=== PATIENT | female | born 1985 | race Hispanic/Latino ===

== ENCOUNTER 2020-05-31 14:25 | Emergency (ER) | payer BC, SELFPAY ==
--- NOTE | 2020-05-31 15:21 | PC.NURSE ---
arrived and stated she has a bed at [facility] and upset [facility] did not take her to [facility]. Opts to take pt. to [facility] per POV. Pt. in no acute distress. She states it is ridiculous that she did not go directly to ED treatment room. Dept. volume explained to pt. upon her arrival.
[2020-05-31 15:55] VITALS: BP 126/79; PULSE 110; RESP 18; TEMP 36.3; O2SAT 97
--- NOTE | 2020-05-31 15:59 | PC.NURSE ---
Pt was called to triage at 1516 but did not answer. When called this time pt states she must have dozed off
[2020-05-31 17:19] VITALS: BP 130/75; PULSE 96; RESP 14; O2SAT 99
--- NOTE | 2020-05-31 18:27 | PC.NURSE ---
urine from CC sent to lab but pt. having vaginal bleeding; unable to cath pt. at triage
--- NOTE | 2020-05-31 18:42 | PC.NURSE ---
called pt at 1836 with no answer and again at 184 with no answer
== END 2020-05-31 18:46 | disposition left against medical advice (07) ==
LOC: ANHED 16:36
PROVIDERS: Emergency Provider Emergency Medicine; PCP Obstetrics & Gynecology
DX: N93.9 Abnormal uterine and vaginal bleeding, unspecified (principal)
CPT/HCPCS: 81025; 99199

== ENCOUNTER 2022-12-07 15:30 | Outpatient (RCR) | payer SELFPAY | END 2023-03-07 23:59 | disposition home or self-care (01) | LOC: ANHLAB 15:30 | PROVIDERS: PCP Obstetrics & Gynecology; Visit Provider Obstetrics & Gynecology | DX: O02.1 Missed abortion (principal); Z3A.00 Weeks of gestation of pregnancy not specified | CPT/HCPCS: 36415; 85461; 86850; 86900; 86901 ==

== ENCOUNTER 2023-03-22 08:54 | Emergency (ER) | payer BC, SELFPAY ==
[2023-03-22 08:58] VITALS: BP 119/88; PULSE 99; RESP 14; TEMP 36.1; O2SAT 100
--- NOTE | 2023-03-22 09:17 | ED.SKABFB ---
HPI - Skin/Abscess/Foreign Bdy General Chief complaint: Skin/Abscess/Foreign Body Stated complaint: facial rash Time Seen by Provider: 03/22/23 08:58 History of Present Illness HPI narrative: 38 y/o female presents with a rash to left forehead that extends into scalp for 5 days. patient states it started out as itchy but now is burning. patient denies any new exposures, fever or vision issues. no other complaints. Onset (ago): day(s) (5) Associated symptoms: denies other symptoms Review of Systems Review of Systems: All systems reviewed & are unremarkable except as noted in HPI and below Integumentary/Breasts: Skin/Breast: Reports pruritus, Reports erythema and Reports rash Exam Const: General: healthy appearing and no acute distress HENMT: Head: normal to inspection Ears: external ears normal Face/Nose/Sinus: Normal external nose present Mouth: Yes Normal oral and palatal mucosa present Eyes: Conjunctivae: conjunctivae normal Pupils: Equal, round and reactive pupils present EOM: EOMs intact bilaterally Other: no vesicles visualized to conjunctiva or inner lid, patient wearing glasses at this time Neck: Neck: normal visual inspection Chest: Chest palpation & inspection: normal inspection of the chest Resp: Effort & Inspection: normal respiratory effort Cardio: Rate: regular rate Back/Spine/Pelvis: Back: no CVA tenderness Skin: Other: red linear vesicular rash to left forehead that extends to left eyebrow and to scalp. rash does not extend to eye. no drainage from wound Neuro: General: patient oriented x3 Extrem: General: normal to inspection Psych: Mental Status: mental status grossly normal Course Course Emergency Course: will start on valacyclovir for shingles. rash does not extend into eye and patient denies vision issues. patient educated on the importance to f/u with eye doctor if she develop vision issues. patient instructed not to use contacts for 2 weeks Vital Signs Vital signs: Vital Signs Temperature 36.1 C L 03/22/23 08:58 Pulse Rate 99 03/22/23 08:58 Respiratory Rate 14 03/22/23 08:58 Blood Pressure 119/88 03/22/23 08:58 Pulse Oximetry 100 03/22/23 08:58 Oxygen Delivery Room Air 03/22/23 08:58 Temperature 36.1 C L 03/22/23 08:58 Pulse Rate 99 03/22/23 08:58 Respiratory Rate 14 03/22/23 08:58 Blood Pressure 119/88 03/22/23 08:58 Pulse Oximetry 100 03/22/23 08:58 Oxygen Delivery Room Air 03/22/23 08:58 MDM - Skin/Abscess/Foreign Bdy MDM Narrative Medical decision making narrative: will start on valcyclovir r/t new appearing vesicles r/t being close to patient's left eye Discharge Plan Discharge Clinical Impression: Herpes zoster dermatitis Patient Disposition: Home, Self-Care Condition: Stable Instructions: Antibiotic Form, Shingles (ED) Additional Instructions: TAKE MEDICATIONS PRESCRIBED RETURN FOR WORSENING SYMPTOMS IF YOU DEVELOP VISION ISSUES, PAIN TO LEFT EYE, OR ANY OTHER CONCERNING SYMPTOMS, GO TO THE NEAREST EYE DOCTOR IMMEDIATELY Prescriptions: New valacyclovir 1 gram tablet 1,000 mg PO Q8H 7 Days Qty: 21 0RF Follow-up/Referrals: Nirmal,KAYKAY Callahan [Primary Care Provider] - 3 Days Time of Disposition: 09:27
== END 2023-03-22 09:39 | disposition home or self-care (01) ==
PROVIDERS: Emergency Provider Nurse Practitioner Family; PCP Physician Assistant
DX: B02.9 Zoster without complications (principal)
CPT/HCPCS: 99283

== ENCOUNTER 2023-12-01 07:56 | Inpatient (IN) | payer BC, SELFPAY ==
[2023-12-01] VITALS (140 sets, daily range): BP systolic 61–137; BP diastolic 39–111; PULSE 76–246; RESP 16; TEMP 36.4–36.9; O2SAT 96–100; BMI 38.6
--- NOTE | 2023-12-01 08:40 | LDADM ---
This patient, Alexa Latham, was admitted to Labor/Delivery/Recovery 105 on 12/01/23 at 07:56. Plans for labor, pain management and were discussed with patient. Patient/family oriented to hospital policies and general routines including ID bracelet, bed and alarms, visiting hours, pain management, procedures, bathroom and other care routines, personal items, smoking policy, room service/diet and guest tray routines, security routines, and visiting hours. Patient/Family are encouraged to report perceived risks to care and to ask questions if they do not understand what they are told or what they should do. See [facility]BIX for further documentation.
[2023-12-01] MEDS: miSOPROStol 25 MCG TABLET 50 MCG BUCCAL (08:51)
[2023-12-01 08:52] LABS: Basophils Percent Auto 0.4 % (0.2-1.2); Eosinophils Absolute Auto 0.2 K/mm3 (0-0.3); Eosinophils Percent Auto 1.7 % (0-4.4); Hematocrit 33.2 % (37.0-47.0); Hemoglobin 11.4 g/dL (12.0-15.0); Immature Granulocyte Absolute 0.03 K/mm3 (0.00-0.031); Immature Granulocyte Percent A 0.3 % (0-0.5); Lymphocytes Absolute Auto 2.41 K/mm3 (0.9-3.2); Lymphocytes Percent Auto 26.6 % (18.3-44.2); Mean Corpuscular HGB Conc 34.3 g/dl (32-36); Mean Corpuscular Hemoglobin 31.1 pg (26-34); Mean Corpuscular Volume 90.5 fl (80-100); Mean Platelet Volume 10.4 fl (7.4-10.4); Monocytes Absolute Auto 0.8 K/mm3 (0.1-0.6); Monocytes Percent Auto 8.7 % (2.6-8.5); Neutrophils Absolute Auto 5.6 K/mm3 (1.3-6.7); Neutrophils Percent Auto 62.3 % (45.5-73.1); Platelet Count Result 349 k/mm3 (150-375); Red Blood Count 3.67 M/mm3 (4.2-5.4); Red Cell Distribution Width 13.5 % (11.5-14.5); White Blood Count 9.1 K/mm3 (4.5-10.0)
[2023-12-01 09:36] LABS: HIV 1/2 Ab P24 Ag Result Negative (Negative)
[2023-12-01] MEDS: LACTATED RINGERS 1,000 ML 125 ML IV CONT ×2 (10:00→11:53)
[2023-12-01] MEDS: SODIUM CHLORIDE 0.9% IV 300 ML 600 ML I-UTERINE (11:15)
[2023-12-01 11:42] LABS: Rapid Plasma Reagin Non-Reactive (NonReactive)
[2023-12-01] MEDS: OXYTOCIN 30 UNITS/NS 500 ML 30 UNITS/500 ML BAG 999 UNITS IV CONT (17:23)
--- NOTE | 2023-12-01 17:30 | WPDOBADMIT ---
Obstetrics - Admit Note Admission Note: record reviewed. No pertinent additions to the history and/or any subsequent changes in the physical findings that are not consistent with the expected course of the were found. Patient presents for SROM at 0715 this AM of clear fluid. No strong contractions or vaginal bleeding. Good movement. Cytotec per protocol, SVE /-3 per RN. Additions to the history and/or subsequent changes in the physical findings follow. None.
--- NOTE | 2023-12-01 17:32 | PM.OBPRVD ---
OB - Vaginal Delivery Note Procedure Delivery date: 12/01/23 Events: Other (AMA) Induction method: Per Misoprostol Protocol Delivery augmentation: Rupture of Membranes (forebag ruptured just prior to delivery) Delivery monitor: External FHT and Internal Uterine Route of delivery: Episiotomy description: None Laceration Description: None Specimen: No Quantitative Blood Loss (ml): 100 Anesthesia type: Epidural Disposition: Floor Complications: No immediate complications Narrative: See H&P and notes for details on patient's admission and labor. She progressed to complete cervical dilation and at the appropriate time began pushing. With adequate expulsive efforts by the mother, the baby's head was delivered without difficulty. Nuchal cord was not present. The baby's right shoulder was anterior and delivered under the pubic symphysis without difficulty. The posterior shoulder and the rest of the baby delivered without difficulty. The umbilical cord was doubly clamped and cut after 60 seconds of delayed cord clamping. Care of the was then assumed by the nursing staff. Baby Date of : 12/01/23 Time of : 17:18 Gestational Age by Date: 38 Infant gender: Male presentation: vertex position: Left Occiput Anterior Placenta delivery description: Expressed Cord Vessel Description: 3 Vessels and Delayed Cord Clamping
[2023-12-01] MEDS: OXYTOCIN 30 UNITS/NS 500 ML 30 UNITS/500 ML BAG 125 UNITS IV CONT (17:57)
[2023-12-01] MEDS: BENZOCAINE 20% AER SPR (*SP) 56 GM CAN 1 SPRAY TOPICAL (19:02)
[2023-12-01] MEDS: WITCH HAZEL 40 PADS 1 PAD TOPICAL (19:02)
--- NOTE | 2023-12-01 20:16 | OBPPTRN ---
12/01/2023 at 1937 Patient transferred to post room #288. Support person and patient oriented to unit, room, information board, rooming in, admission packet and security measures. Patient and her significant other verbalizes understanding.
[2023-12-02 00:50] VITALS: BP 91/55; PULSE 101; RESP 16; TEMP 36.4; O2SAT 97
[2023-12-02 04:35] VITALS: BP 96/62; PULSE 93; RESP 16; TEMP 36.4
[2023-12-02 05:10] LABS: Hematocrit 33.5 % (37.0-47.0); Hemoglobin 11.1 g/dL (12.0-15.0)
[2023-12-02] MEDS: ACETAMINOPHEN 325 MG TABLET 650 MG PO (05:59)
--- NOTE | 2023-12-02 07:45 | WPDANLDPN2 ---
Anes-Prog Note L&D Date/Time: 12/02/23 07:45 Comfortable throughout: labor and delivery Neuraxial method: epidural Epidural/Spinal procedure site: clean & non-tender Neuro status: Neuro function grossly intact. Cardiovascular status: normal Respiratory status: normal Airway patency: baseline Mental status: baseline Post-Op hydration status: normal Vital Signs: Last Vital Signs Temp 36.4 C L 12/02/23 04:35 Pulse 93 12/02/23 04:35 Resp 16 12/02/23 04:35 BP 96/62 L 12/02/23 04:35 Pulse Ox 97 12/02/23 00:50 O2 Del Method Room Air 12/01/23 08:39 Pain score (VAS): 0/10 I/O: Intake & Output 12/01/23 12/01/23 12/02/23 15:59 23:59 07:59 Intake Total 1000 Output Total 100 Balance 1000 -100 Post-procedural complaints: none Patient feedback: Patient satisfied with anesthetic care.
[2023-12-02 07:50] VITALS: BP 91/55; PULSE 82; RESP 16; TEMP 37.1; O2SAT 97
[2023-12-02] MEDS: MULTIVIT/MIN/PREN/FOL AC/IRON TABLET 1 TAB PO (09:09)
[2023-12-02] MEDS: IBUPROFEN 600 MG TABLET PO (09:09)
--- NOTE | 2023-12-02 11:55 | PC.NURSE ---
medical oncologist called this RN to assist with feeding. was circumcised and is sleepy. After a diaper change and unwrapping , infant was placed on the left breast in football position and is nursing well.
[2023-12-02 12:04] VITALS: BP 101/62; PULSE 85; RESP 16; TEMP 36.3; O2SAT 99
--- NOTE | 2023-12-02 12:58 | PM.OBPNVD ---
OB - PN: Subj Subjective Date/time seen: 12/02/23 12:58 Interval history: PPD#1 Doing well, pain controlled Bleeding minimal , latching well Ready for discharge home OB - PN: Obj Data Labs 12/02/23 05:00 Labs: Laboratory Results - last 24 hr 12/02/23 05:00 Hgb 11.1 L Hct 33.5 L OB - PN A/P Assessment and Plan (1) (spontaneous vaginal delivery): Code(s): O80 - Encounter for full-term uncomplicated delivery Status: Acute Plan day: 1 Plan: routine care and discharge home Time Spent With Patient Time: Total time spent is greater than 50% in coordination of care (as documented) at patient's floor/unit and/or counseling patient: Review of Systems Review of Systems: All systems reviewed & are unremarkable except as noted in HPI and below Exam Const: General: comfortable and no acute distress Orientation/consciousness: patient oriented x3 Resp: Effort & Inspection: normal respiratory effort
--- NOTE | 2023-12-02 13:02 | PM.OBDSVD ---
DS: Admitting Diagnosis Discharge Date 12/02/23 Admitting Diagnosis SROM DS: Discharge Diagnosis Discharge Diagnosis (1) (spontaneous vaginal delivery): Code(s): O80 - Encounter for full-term uncomplicated delivery Status: Acute OB - DS: Summary OB Procedures : None OB Procedures Intrapartum: Spontaneous Vag Delivery OB Procedures: : None Peripartum Data Laceration Description: None Episiotomy description: None Time Spent with Patient Time attestation: Total time spent providing and/or coordinating discharge services: DS: Data Data Completed and Pending Labs on day of discharge: Labs from last 24 hours 12/02/23 05:00 Hgb 11.1 L Hct 33.5 L Discharge Plan Discharge Attending physician on discharge: Steven Diallo Discharging Clinician: Steven Diallo Patient Disposition: Home, Self-Care Activity: may shower and pelvic rest Diet: as tolerated Patient Instructions: Antibiotic Form Stand Alone Forms: General Discharge Information Follow-up/Referrals: Steven Diallo MD [Physician] - 4 Weeks Discharge Medications: New docusate sodium 100 mg Capsule 100 mg PO BID PRN (Reason: Constipation) Qty: 60 0RF ibuprofen 600 mg Tablet 600 mg PO Q6H PRN (Reason: Cramping) Qty: 30 0RF Continued #2 Tablet 1 tablet DAILY Discontinued Adult Low Dose Aspirin 81 mg Tablet 81 mg PO DAILY Date of admission: 12/01/23 07:56 Primary Care Provider: IoanaSindy Admitting Provider: Steven Diallo Attending physician on admission: Steven Diallo Condition: Stable
[2023-12-02] MEDS: TETANUS,DIPHTHERIA,AC PERTUSSIS ADULT (0.5 ML) BOOSTRIX IM (14:21)
[2023-12-04 11:35] VITALS: BP 113/73; PULSE 88; RESP 18; TEMP 37.1; O2SAT 100
== END 2023-12-02 20:45 | disposition home or self-care (01) | DRG 560 ==
LOC: ANHLDR 08:19 → ANHOB2 19:40
PROVIDERS: Admitting Provider Obstetrics & Gynecology; PCP Physician Assistant; Visit Provider Obstetrics & Gynecology
DX: O80 Encounter for full-term uncomplicated delivery (principal); Z3A.38 38 weeks gestation of pregnancy; Z37.0 Single live birth
CPT/HCPCS: 36415; 84112; 85014; 85018; 85025; 86592; 86703; 86850; 86900; 86901; 90715; A9270; G0432; J2590; J2795; J7030; J7120